=== PATIENT | male | born 1970 | race Caucasian/White ===

== ENCOUNTER 2018-10-26 16:22 | Emergency (ER) | payer SELFPAY, OTHER | END 2018-10-26 17:52 | disposition home or self-care (01) | LOC: FTE 16:22 | DX: L02.415 Cutaneous abscess of right lower limb (principal); L03.115 Cellulitis of right lower limb; F17.210 Nicotine dependence, cigarettes, uncomplicated | CPT/HCPCS: 10060; 99283-25 ==